=== PATIENT | female | born 1955 | race Two or more races ===

== ENCOUNTER 2024-11-23 10:14 | Inpatient (IN) | payer MEDICARE ==
[~2024-11-23] VITALS: Ht 152.4 cm; Wt 63.0 kg
[2024-11-23 11:31] LABS: APPEARANCE,URINE CLEAR (CLEAR); BLOOD, URINE TRACE-INTA Ery/uL (NEGATIVE); LEUKOCYTE ESTERASE ,URINE 1+ (NEGATIVE); NITRITE, URINE NEGATIVE (NEGATIVE); UGLUCOSE NEGATIVE (NEGATIVE)
[2024-11-23 11:38] LABS: AMPHETAMINE, URINE NEGATIVE (NEGATIVE); BARBITURATE, URINE NEGATIVE (NEGATIVE); BENZODIAZEPINE, URINE NEGATIVE (NEGATIVE); COCCAINE, URINE NEGATIVE (NEGATIVE); OPIATE, URINE NEGATIVE (NEGATIVE)
[2024-11-23 11:39] LABS: PLATELET COUNT (AUTO) 169 K/uL (150-450); RED BLOOD CELL COUNT(AUTO) 4.22 MIL/uL (4.0-5.2); RED CELL DISTRIBUTION WIDTH 13.1 % (11.5-15.0); WHITE BLOOD COUNT (AUTO) 6.6 K/uL (4.3-11.0)
[2024-11-23 11:43] LABS: CANNABINOID, URINE POSITIVE (NEGATIVE)
[2024-11-23 11:46] LABS: CALCIUM, SERUM 9.0 mg/dL (8.5-10.1); CREATININE 0.9 mg/dL (0.6-1.3); SODIUM SERUM 144 mmol/L (136-145); UREA NITROGEN, BLOOD 17 mg/dL (7-18)
[2024-11-23 11:49] LABS: ADD URINE CULTURE YES
[2024-11-23 11:52] LABS: ASPARTATE AMINOTRANSFERASE 11 U/L (15-37); TOTAL PROTEIN, SERUM 7.1 g/dL (6.4-8.2)
[2024-11-23 11:53] LABS: ALCOHOL, BLOOD < 3 mg/dL (0-10)
[2024-11-23] MEDS ORDERED: RISP0.5T65 PO (12:17)
[2024-11-23] MEDS ORDERED: ABH TP (12:17)
[2024-11-23] MEDS ORDERED: DIVA125C2 PO (12:17)
[2024-11-23] MEDS ORDERED: CITA20TA16 PO (12:17)
[2024-11-23] MEDS ORDERED: SULF1TAB48 PO (12:19)
[2024-11-23] MEDS: CEPHALEXIN MONOHYDRATE 500 MG CAPSULE PO ONE (12:31)
[2024-11-23] MEDS ORDERED: MAGNESIUM HYDROXIDE 30 ML UDC PO PRN (15:00)
[2024-11-23] MEDS ORDERED: MAG HYDROX/AL HYDROX/SIMETH 30 ML UDC PO PRN (15:00)
[2024-11-23] MEDS: BLOOD SUGAR DIAGNOSTIC 1 EACH STRIP IN ONE (15:26)
[2024-11-23 16:09] VITALS: BP 127/99; TEMP 98; O2SAT 98
[2024-11-23] MEDS: OLANZAPINE 10 MG VIAL IM STA (17:15)
[2024-11-23 19:55] VITALS: BP 103/73; TEMP 97.7; O2SAT 98
[2024-11-23] MEDS ORDERED: TEMAZEPAM 7.5 MG CAPSULE PO PRN (23:00)
[2024-11-23] MEDS ORDERED: LORAZEPAM 0.5 MG TABLET PO PRN (23:00)
[2024-11-23] MEDS: ACETAMINOPHEN 325 MG TABLET PO PRN (23:13)
[2024-11-24 07:42] LABS: ASPARTATE AMINOTRANSFERASE 16.0 U/L (15-37); CALCIUM, SERUM 9.0 mg/dL (8.5-10.1); CREATININE 0.9 mg/dL (0.6-1.3); SODIUM SERUM 143.0 mmol/L (136-145); TOTAL PROTEIN, SERUM 7.6 g/dL (6.4-8.2); UREA NITROGEN, BLOOD 18.0 mg/dL (7-18)
[2024-11-24 07:45] LABS: LDL 88 mg/dL (0-99)
[2024-11-24 08:00] VITALS: BP 114/85; TEMP 98.6; O2SAT 96
[2024-11-24] MEDS: NITROFURANTOIN/MONOHYDRATE MACROCRYSTALS 100 MG CAPSULE PO SCH (08:28)
[2024-11-24] MEDS: DIVALPROEX SODIUM 125 MG CAP.SPRINK PO SCH (12:49)
[2024-11-24] MEDS: LORAZEPAM 0.5 MG TABLET PO PRN (14:02)
[2024-11-24 16:00] VITALS: BP 121/93; TEMP 97.8; O2SAT 98
[2024-11-24 19:48] VITALS: BP 103/82; TEMP 98.1; O2SAT 95
[2024-11-25 08:00] VITALS: BP 100/72; TEMP 97.7; O2SAT 98
[2024-11-25 09:13] LABS: CREATININE 0.7 mg/dL (0.6-1.3)
[2024-11-25 16:00] VITALS: BP 117/91; TEMP 98.1; O2SAT 98
[2024-11-26] MEDS: TEMAZEPAM 7.5 MG CAPSULE PO PRN (00:42)
[2024-11-26 08:00] VITALS: BP 91/58; TEMP 98; O2SAT 97
[2024-11-26 16:00] VITALS: BP 94/76; TEMP 97.8; O2SAT 95
[2024-11-26 20:00] VITALS: BP 132/67; TEMP 98; O2SAT 99
[2024-11-27] MEDS ORDERED: Z GUARD REMEDY 4 OZ OINT TP PRN (07:00)
[2024-11-27 08:00] VITALS: BP 111/83; TEMP 97.8; O2SAT 98
[2024-11-27 16:00] VITALS: BP 109/73; TEMP 98.6; O2SAT 98
[2024-11-27 20:15] VITALS: BP 107/72; TEMP 98.5; O2SAT 96
[2024-11-28 08:00] VITALS: BP 103/86; TEMP 97.8; O2SAT 96
[2024-11-28 16:00] VITALS: BP 100/75; TEMP 97.7; O2SAT 98
[2024-11-28 20:34] VITALS: BP 107/88; TEMP 97.8; O2SAT 98
[2024-11-29 08:00] VITALS: BP 100/51; TEMP 98; O2SAT 98
[2024-11-29 16:00] VITALS: BP 102/69; TEMP 97.8; O2SAT 97
[2024-11-29 19:54] VITALS: BP 101/71; TEMP 97.7; O2SAT 100
[2024-11-29] MEDS: DIVALPROEX SODIUM 250 MG TABLET.DR PO SCH (21:32)
[2024-11-30 08:00] VITALS: BP 95/52; TEMP 98.1; O2SAT 100
[2024-11-30] MEDS: DIVALPROEX SODIUM 250 MG TABLET.DR PO SCH (12:24)
[2024-11-30 16:00] VITALS: BP 109/80; TEMP 97; O2SAT 98
[2024-11-30 20:05] VITALS: BP 130/82; TEMP 98; O2SAT 96
[2024-12-01 08:00] VITALS: BP 118/98; TEMP 97.6; O2SAT 96
== END 2024-12-01 09:45 | DRG 885 ==
LOC: ER 10:22 → GPS 12:51
PROVIDERS: ADMIT Psychiatry & Neurology Psychosomatic Medicine; ATTEND Internal Medicine
DX: F29 Unspecified psychosis not due to a substance or known physiological condition (principal); N39.0 Urinary tract infection, site not specified; F03.93 Unspecified dementia, unspecified severity, with mood disturbance; I10 Essential (primary) hypertension; Z20.822 Contact with and (suspected) exposure to COVID-19; Z73.6 Limitation of activities due to disability; F39 Unspecified mood [affective] disorder
CPT/HCPCS: 36415; 70450-TC; 80048-TC; 80053-TC; 80061-TC; 80076-TC; 80164-TC; 81001; 82565-TC; 85025-TC; 87086-TC; 97110-TC; 97116-TC; 97530-TC; G0480; J3490